=== PATIENT | female | born 1975 | race Caucasian/White ===

== ENCOUNTER 2016-09-11 02:38 | Emergency (ER) | payer OTHER ==
[~2016-09-11] VITALS: Ht 167.6 cm; Wt 79.7 kg
[~2016-09-11 02:38] MED LIST: ALBUTEROL SULF8.5 GM IH; ASACOL HD800 MG PO; ASPIR 8181 M1 PO; BENTYL10 MG PO; COLACE100 MG PO; DESYREL12.5 MG PO; FLOVENT 11120 INHALA IH; FLOVENT 22120 INHALA IH; GABAPENTIN100 MG PO; IBUPROFEN800 MG PO; KLONOPIN0.5 M1; LAMICTAL200 MG PO; LOESTRIN 241 TABLET PO; MIRALAX17 GM PO; MOTRIN800 MG PO; NAPROSYN500 MG PO; PERCOCET 5/31 TABLET; PERCOCET 5/31 TABLET PO; PREDNISONE10 MG PO; PREDNISONE20 MG PO; PROZAC40 MG PO; RELPAX40 MG PO; TESSALON PERLE100 MG PO; TOPAMAX50 MG PO; VENTOLIN HFA18 GM; VENTOLIN HFA18 GM IH; VITAMIN D250000 UNIT PO; VITAMIN D50000 UNI2 PO; ZANTAC150 M1 PO; ZANTAC150 MG PO; ZOFRAN ODT4 MG PO; ZOFRAN4 MG PO; ZOLOFT100 MG PO; ZOLOFT50 M1 PO; ZOLOFT50 MG PO
[2016-09-11 03:10] LABS: HEMATOCRIT 43.3 % (36.0-46.0); MCH 29.4 PG (29.0-34.0); MCHC 32.8 G/DL (30.0-36.0); MCV 89.6 FL (83-99); MEAN PLAT.VOLUME 10.5 uM^3 (9.5-12.4); PLATELET COUNT 231 K/uL (156-360); RBC DIS.WIDTH-CV 12.4 % (11.8-14.6); RBC DIS.WIDTH-SD 40.9 % (39-53); RED BLOOD COUNT 4.83 M/uL (3.80-5.20); WHITE BLOOD COUNT 7.1 K/uL (4.1-10.2)
[2016-09-11 03:25] LABS: CHLORIDE 106 mEq/L (99-109); POTASSIUM 3.8 mEq/L (3.7-5.4); SODIUM 140 mEq/L (136-147)
[2016-09-11 03:27] LABS: GLUCOSE 104 mg/dL (70-99)
[2016-09-11 03:28] LABS: ANION GAP 9 MEQ/L (2-14)
[2016-09-11 03:29] LABS: TOTAL BILIRUBIN 0.2 mg/dL (0.0-1.0)
[2016-09-11 03:30] LABS: ALKALINE PHOSPHATASE 107 IU/L (3-129)
[2016-09-11 03:31] LABS: GFR ESTIMATE (CALCULATED) > 59 mL/min/
[2016-09-11 03:32] LABS: UREA NITROGEN (BUN) 13 mg/dL (9-23)
[2016-09-11 03:39] LABS: QUANTITATIVE HCG < 4.0 MIU/ML
[2016-09-11 04:07] LABS: LIPASE 39 U/L (1.0-51.0)
[2016-09-11 04:20] LABS: ADD MIUA? NO; BILIRUBIN NEGATIVE; BLOOD NEGATIVE; COLOR YELLOW ((YELLOW)); GLUCOSE (STRIP) NEGATIVE; KETONES NEGATIVE; LEUKOCYTES NEGATIVE; NITRITE NEGATIVE; PROTEIN (STRIP) NEGATIVE; SPECIFIC GRAVITY 1.016 (1.000-1.030); UCUL ADDED? NO; UROBILINOGEN 0.2 MG/DL (0.2-1.0)
[2016-09-11] MEDS ORDERED: NORCO 5/3251 TABLET PO (04:39)
[2016-09-11] MEDS ORDERED: BENTYL20 MG PO (04:39)
[2016-09-11 05:17] VITALS: BP 132/92
== END 2016-09-11 05:19 | disposition home or self-care (01) ==
LOC: EME 02:38
DX: R10.31 Right lower quadrant pain (principal); R11.2 Nausea with vomiting, unspecified; M79.604 Pain in right leg; Z87.442 Personal history of urinary calculi; J44.9 Chronic obstructive pulmonary disease, unspecified; J45.909 Unspecified asthma, uncomplicated
CPT/HCPCS: 74177; 80053; 81003; 83690; 84702; 85027; 99281; 99284; J1885; J2405

== ENCOUNTER 2016-11-19 16:15 | Emergency (ER) | payer OTHER ==
[~2016-11-19] VITALS: Ht 167.6 cm; Wt 78.7 kg
[~2016-11-19 16:15] MED LIST changes: +BENTYL20 MG PO; +NORCO 5/3251 TABLET PO
[2016-11-19 16:39] LABS: HEMATOCRIT 40.2 % (36.0-46.0); MCH 29.5 PG (29.0-34.0); MCHC 33.3 G/DL (30.0-36.0); MCV 88.5 FL (83-99); PLATELET COUNT 226 K/uL (156-360); RBC DIS.WIDTH-CV 12.3 % (11.8-14.6); RBC DIS.WIDTH-SD 40.1 % (39-53); RED BLOOD COUNT 4.54 M/uL (3.80-5.20); WHITE BLOOD COUNT 9.2 K/uL (4.1-10.2)
[2016-11-19 16:46] LABS: CHLORIDE 107 mEq/L (99-109); POTASSIUM 3.7 mEq/L (3.7-5.4); SODIUM 140 mEq/L (136-147)
[2016-11-19 16:48] LABS: GLUCOSE 90 mg/dL (70-99)
[2016-11-19 16:49] LABS: ANION GAP 7 MEQ/L (2-14)
[2016-11-19 16:50] LABS: TOTAL BILIRUBIN 0.3 mg/dL (0.0-1.0)
[2016-11-19 16:51] LABS: ALKALINE PHOSPHATASE 100 IU/L (3-129)
[2016-11-19 16:52] LABS: GFR ESTIMATE (CALCULATED) > 59 mL/min/
[2016-11-19 16:53] LABS: UREA NITROGEN (BUN) 10 mg/dL (9-23)
[2016-11-19 17:01] LABS: QUANTITATIVE HCG < 4.0 MIU/ML
[2016-11-19 17:02] LABS: ADD MIUA? YES; BILIRUBIN NEGATIVE; BLOOD NEGATIVE; COLOR YELLOW ((YELLOW)); GLUCOSE (STRIP) NEGATIVE; KETONES NEGATIVE; LEUKOCYTES TRACE; NITRITE NEGATIVE; PROTEIN (STRIP) NEGATIVE; SPECIFIC GRAVITY 1.016 (1.000-1.030); UROBILINOGEN 0.2 MG/DL (0.2-1.0)
[2016-11-19 17:07] LABS: BACTERIA RARE /HPF; EPITHELIAL CELLS 1+ /HPF; MUCUS TRACE /LPF; RED BLOOD CELLS 0-5 /HPF (0-5); UCUL ADDED? NO; WHITE BLOOD CELLS 0-5 /HPF (0-5)
[2016-11-19 18:26] LABS: LIPASE 31 U/L (1.0-51.0)
[2016-11-19] MEDS ORDERED: NORCO 5/3251 TABLET PO (18:50)
[2016-11-19] MEDS ORDERED: CARAFATE1 GM PO (18:50)
[2016-11-19] MEDS ORDERED: PEPCID20 MG PO (18:50)
[2016-11-19 19:06] VITALS: BP 139/93
== END 2016-11-19 19:10 | disposition home or self-care (01) ==
LOC: EME 16:15
DX: R10.13 Epigastric pain (principal); J45.909 Unspecified asthma, uncomplicated; J44.9 Chronic obstructive pulmonary disease, unspecified; Z87.442 Personal history of urinary calculi
CPT/HCPCS: 80053; 81003; 83690; 84702; 85027; 99281; 99284

== ENCOUNTER 2017-08-26 20:18 | Emergency (ER) | payer OTHER ==
[~2017-08-26] VITALS: Ht 167.6 cm; Wt 80.1 kg
[~2017-08-26 20:18] MED LIST changes: +CARAFATE1 GM PO; +PEPCID20 MG PO
[2017-08-26 21:01] LABS: HEMATOCRIT 37.4 % (36.0-46.0); HEMOGLOBIN 12.8 G/DL (11.9-15.5); MCH 30.4 PG (29.0-34.0); MCHC 34.2 G/DL (30.0-36.0); MCV 88.8 FL (83-99); PLATELET COUNT 204 K/uL (156-360); RBC DIS.WIDTH-CV 12.2 % (11.8-14.6); RBC DIS.WIDTH-SD 39.6 % (39-53); RED BLOOD COUNT 4.21 M/uL (3.80-5.20); WHITE BLOOD COUNT 7.7 K/uL (4.1-10.2)
[2017-08-26 21:18] LABS: ALBUMIN 3.9 g/dL (3.2-4.8); CHLORIDE 111 mEq/L (99-109); POTASSIUM 3.8 mEq/L (3.7-5.4); SODIUM 141 mEq/L (136-147)
[2017-08-26 21:20] LABS: GLUCOSE 111 mg/dL (70-99); TOTAL PROTEIN 6.7 g/dL (6.4-8.3)
[2017-08-26 21:22] LABS: TOTAL BILIRUBIN 0.2 mg/dL (0.0-1.0)
[2017-08-26 21:24] LABS: APPEARANCE SL.HAZY ((CLEAR)); BILIRUBIN NEGATIVE; BLOOD NEGATIVE; COLOR YELLOW ((YELLOW)); GLUCOSE (STRIP) NEGATIVE; KETONES NEGATIVE; LEUKOCYTES TRACE; NITRITE NEGATIVE; PROTEIN (STRIP) NEGATIVE; SPECIFIC GRAVITY 1.025 (1.000-1.030); UROBILINOGEN 0.2 MG/DL (0.2-1.0)
[2017-08-26 21:24] LABS: ALKALINE PHOSPHATASE 107 IU/L (3-129); CREATININE 0.8 mg/dL (0.6-1.3); GFR ESTIMATE (CALCULATED) > 59 mL/min/
[2017-08-26 21:25] LABS: UREA NITROGEN (BUN) 12 mg/dL (9-23)
[2017-08-26 21:26] LABS: AST (GOT) 29 IU/L (2-34); DIRECT BILIRUBIN 0.1 mg/dL (0.0-0.3); TROP-I INTERPRETATION NEGATIVE; TROPONIN-I < 0.01 ng/mL (0.0-0.30)
[2017-08-26 21:27] LABS: ALT (GPT) 39 IU/L (3-49); LIPASE 38 U/L (1.0-51.0)
[2017-08-26 21:35] LABS: QUANTITATIVE HCG < 4.0 MIU/ML
[2017-08-26 21:38] LABS: BACTERIA RARE /HPF; EPITHELIAL CELLS 1+ /HPF; MUCUS TRACE /LPF; RED BLOOD CELLS 0-5 /HPF (0-5); UCUL ADDED? NO; WHITE BLOOD CELLS 0-5 /HPF (0-5)
[2017-08-26 23:33] LABS: TROP-I INTERPRETATION NEGATIVE; TROPONIN-I < 0.01 ng/mL (0.0-0.30)
[2017-08-27 00:15] VITALS: BP 129/86
== END 2017-08-27 00:15 | disposition home or self-care (01) ==
LOC: EME 20:18
PROVIDERS: Emergency Medicine
DX: R07.9 Chest pain, unspecified (principal); J98.01 Acute bronchospasm; Z87.442 Personal history of urinary calculi; K21.9 Gastro-esophageal reflux disease without esophagitis; F32.9 Major depressive disorder, single episode, unspecified; K58.0 Irritable bowel syndrome with diarrhea; J44.9 Chronic obstructive pulmonary disease, unspecified; Z82.49 Family history of ischemic heart disease and other diseases of the circulatory system
CPT/HCPCS: 71046; 71275; 76705; 80048; 80076; 81003; 83690; 84484; 84702; 85027; 93005; 94640; 99281; 99285; J7030

== ENCOUNTER 2017-09-06 02:45 | Emergency (ER) | payer OTHER ==
[~2017-09-06] VITALS: Ht 167.6 cm; Wt 77.9 kg
[2017-09-06 03:14] LABS: HEMATOCRIT 41.3 % (36.0-46.0); HEMOGLOBIN 14.2 G/DL (11.9-15.5); MCH 30.3 PG (29.0-34.0); MCHC 34.4 G/DL (30.0-36.0); MCV 88.1 FL (83-99); PLATELET COUNT 259 K/uL (156-360); RBC DIS.WIDTH-CV 12.1 % (11.8-14.6); RBC DIS.WIDTH-SD 38.9 % (39-53); RED BLOOD COUNT 4.69 M/uL (3.80-5.20); WHITE BLOOD COUNT 6.9 K/uL (4.1-10.2)
[2017-09-06 03:24] LABS: CHLORIDE 107 mEq/L (99-109); POTASSIUM 5.8 mEq/L (3.7-5.4); SODIUM 138 mEq/L (136-147)
[2017-09-06 03:26] LABS: GLUCOSE 102 mg/dL (70-99); TOTAL PROTEIN 7.6 g/dL (6.4-8.3)
[2017-09-06 03:28] LABS: TOTAL BILIRUBIN 0.3 mg/dL (0.0-1.0)
[2017-09-06 03:29] LABS: ALKALINE PHOSPHATASE 80 IU/L (3-129)
[2017-09-06 03:30] LABS: CREATININE 0.8 mg/dL (0.6-1.3); GFR ESTIMATE (CALCULATED) > 59 mL/min/
[2017-09-06 03:31] LABS: AST (GOT) 39 IU/L (2-34); UREA NITROGEN (BUN) 11 mg/dL (9-23)
[2017-09-06 03:33] LABS: ALT (GPT) 18 IU/L (3-49)
[2017-09-06 03:39] LABS: QUANTITATIVE HCG < 4.0 MIU/ML
[2017-09-06 04:29] LABS: APPEARANCE SL.HAZY ((CLEAR)); BILIRUBIN NEGATIVE; BLOOD NEGATIVE; COLOR YELLOW ((YELLOW)); GLUCOSE (STRIP) NEGATIVE; KETONES NEGATIVE; LEUKOCYTES TRACE; NITRITE NEGATIVE; PROTEIN (STRIP) NEGATIVE; SPECIFIC GRAVITY 1.019 (1.000-1.030); UROBILINOGEN 0.2 MG/DL (0.2-1.0)
[2017-09-06 04:37] LABS: BACTERIA RARE /HPF; EPITHELIAL CELLS 2+ /HPF; MUCUS 1+ /LPF; RED BLOOD CELLS 0-5 /HPF (0-5); UCUL ADDED? YES
[2017-09-06] MEDS ORDERED: MACROBID100 MG PO (04:41)
[2017-09-06 05:04] VITALS: BP 128/86
== END 2017-09-06 05:06 | disposition home or self-care (01) ==
LOC: EME 02:45
PROVIDERS: Physician Assistant
DX: R10.31 Right lower quadrant pain (principal); N39.0 Urinary tract infection, site not specified; K21.9 Gastro-esophageal reflux disease without esophagitis; J44.9 Chronic obstructive pulmonary disease, unspecified; F32.9 Major depressive disorder, single episode, unspecified
CPT/HCPCS: 74176; 80053; 81003; 84702; 85027; 87086; 99281; 99285; J2270; J2405; J7030

== ENCOUNTER 2017-12-02 18:11 | Emergency (ER) | payer OTHER ==
[~2017-12-02] VITALS: Ht 165.1 cm; Wt 98.2 kg
[~2017-12-02 18:11] MED LIST changes: +MACROBID100 MG PO
[2017-12-02 18:45] LABS: HEMATOCRIT 39.9 % (36.0-46.0); HEMOGLOBIN 13.5 G/DL (11.9-15.5); MCH 30.5 PG (29.0-34.0); MCHC 33.8 G/DL (30.0-36.0); MCV 90.1 FL (83-99); PLATELET COUNT 197 K/uL (156-360); RBC DIS.WIDTH-CV 12.3 % (11.8-14.6); RBC DIS.WIDTH-SD 40.6 % (39-53); RED BLOOD COUNT 4.43 M/uL (3.80-5.20); WHITE BLOOD COUNT 6.8 K/uL (4.1-10.2)
[2017-12-02 18:56] LABS: ALBUMIN 4.1 g/dL (3.2-4.8)
[2017-12-02 18:57] LABS: CHLORIDE 107 mEq/L (99-109); POTASSIUM 4.5 mEq/L (3.7-5.4); SODIUM 138 mEq/L (136-147)
[2017-12-02 18:59] LABS: GLUCOSE 80 mg/dL (70-99)
[2017-12-02 19:01] LABS: TOTAL BILIRUBIN 0.2 mg/dL (0.0-1.0)
[2017-12-02 19:02] LABS: ALKALINE PHOSPHATASE 106 IU/L (3-129)
[2017-12-02 19:03] LABS: CREATININE 0.8 mg/dL (0.6-1.3); GFR ESTIMATE (CALCULATED) > 59 mL/min/
[2017-12-02 19:04] LABS: AST (GOT) 29 IU/L (2-34); UREA NITROGEN (BUN) 12 mg/dL (9-23)
[2017-12-02 19:06] LABS: ALT (GPT) 30 IU/L (3-49)
[2017-12-02 19:11] LABS: APPEARANCE CLEAR ((CLEAR)); BILIRUBIN NEGATIVE; BLOOD NEGATIVE; COLOR YELLOW ((YELLOW)); GLUCOSE (STRIP) NEGATIVE; KETONES NEGATIVE; LEUKOCYTES NEGATIVE; NITRITE NEGATIVE; PROTEIN (STRIP) NEGATIVE; SPECIFIC GRAVITY 1.017 (1.000-1.030); UCUL ADDED? NO; UROBILINOGEN 0.2 MG/DL (0.2-1.0)
[2017-12-02 19:12] LABS: QUANTITATIVE HCG < 4.0 MIU/ML
[2017-12-02] MEDS ORDERED: ZOFRAN ODT4 MG PO (21:44)
[2017-12-02] MEDS ORDERED: BENTYL10 MG PO (21:44)
[2017-12-02 21:55] VITALS: BP 134/94
== END 2017-12-02 21:56 | disposition home or self-care (01) ==
LOC: RME 18:11 → EME 18:11 → RME 21:56
DX: R10.31 Right lower quadrant pain (principal); M54.5 Low back pain; R11.0 Nausea; Z87.442 Personal history of urinary calculi; Z98.51 Tubal ligation status; J44.9 Chronic obstructive pulmonary disease, unspecified
CPT/HCPCS: 74177; 80053; 81003; 84702; 85027; 99281; 99285; J1885; J2405; J7030

== ENCOUNTER 2018-01-24 05:24 | Day surgery (SDC) | payer OTHER ==
[~2018-01-24] VITALS: Ht 167.6 cm; Wt 77.1 kg
[~2018-01-24 05:24] MED LIST changes: +ASMANEX HFA13 G1 IH; +CLARITIN,ALAVAR10 MG PO; +ERGOCALCIF50000 UNIT PO; +MAXALT10 MG PO
[2018-01-24 06:09] VITALS: BP 122/86
[2018-01-24 10:42] VITALS: BP 144/88
[2018-01-24 11:55] VITALS: BP 128/82
== END 2018-01-24 12:18 | disposition home or self-care (01) ==
LOC: SDC 05:24
DX: D25.9 Leiomyoma of uterus, unspecified (principal); N72 Inflammatory disease of cervix uteri; J44.9 Chronic obstructive pulmonary disease, unspecified; I34.1 Nonrheumatic mitral (valve) prolapse; K21.9 Gastro-esophageal reflux disease without esophagitis
CPT/HCPCS: 88307; J0131; J0330; J0690; J1100; J1170; J1885; J2250; J2405; J2710; J2765; J3010; J7643